=== PATIENT | male | born 1990 | race African-American/Black ===

== ENCOUNTER 2017-06-01 20:15 | Emergency (ER) | payer OTHER ==
[~2017-06-01] VITALS: Ht 175.3 cm; Wt 65.8 kg
[~2017-06-01 20:15] MED LIST: CIPROFLOXACIN500 M1 PO
[2017-06-01 20:21] VITALS: BP 125/86
[2017-06-01] MEDS ORDERED: MOBIC7.5 MG PO (20:59)
[2017-06-01] MEDS ORDERED: CYCLOBENZAPRINE5 MG PO (20:59)
== END 2017-06-01 21:15 | disposition home or self-care (01) ==
LOC: ER 20:15
DX: S16.1XXA Strain of muscle, fascia and tendon at neck level, initial encounter (principal); S06.0X0A Concussion without loss of consciousness, initial encounter; J45.909 Unspecified asthma, uncomplicated; F17.210 Nicotine dependence, cigarettes, uncomplicated; F10.99 Alcohol use, unspecified with unspecified alcohol-induced disorder; F15.10 Other stimulant abuse, uncomplicated; V89.2XXA Person injured in unspecified motor-vehicle accident, traffic, initial encounter; Y93.89 Activity, other specified; Y92.89 Other specified places as the place of occurrence of the external cause; Y99.8 Other external cause status